=== PATIENT | female | born 1945 ===

== ENCOUNTER 2018-12-30 22:28 | Emergency (ER) | payer MEDICARE ==
[2018-12-30 22:29] VITALS: BMI 28.3
--- NOTE | 2018-12-30 23:12 | ED PDOC ---
HPI: Neurologic - General Time Seen by Provider: 12/30/18 22:36 Chief Complaint (Nursing): Dizziness/Lightheaded Chief Complaint (Provider): dizziness - History of Present Illness Timing/Duration: other (2 hours ship captain) Allergies/Adverse Reactions: Allergies FISH Allergy (Intermediate, Verified 12/30/18 22:36) RASH Penicillins Allergy (Verified 12/30/18 22:36) RASH hydromorphone Adverse Reaction (Verified 12/30/18 22:36) ITCHING SEAFOOD Allergy (Intermediate, Uncoded 12/30/18 22:36) RASH Home Medications: Ambulatory Orders Ergocalciferol [Drisdol 50,000 Intl Units Cap] 50,000 iu PO QWK 02/03/17 amLODIPine [Norvasc] 2.5 mg PO DAILY 02/03/17 Aspirin [Ecotrin] 81 mg PO DAILY 01/19/18 Meclizine [Antivert] 25 mg PO Q6 PRN #12 tab 12/31/18 Ondansetron ODT [Zofran ODT] 4 mg PO Q6 PRN #8 odt 12/31/18 Additional Complaint(s): started while watching TV, associated mild nausea, no vomit no headache no fever no focal weakness no blurry vision 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, started on meds for this but it made her "feel bad" so she no longer takes it pmd [place] Past Medical History Reviewed: Historical Data, Nursing Documentation, Vital Signs Vital Signs: Last Vital Signs Temp 98.1 F 12/30/18 22:33 Pulse 71 12/30/18 22:33 Resp 98 H 12/30/18 22:33 BP 160/76 H 12/30/18 22:54 Pulse Ox 98 12/30/18 22:33 Primary Care Provider: Gordon Vidal - Medical History PMH: Atrial Fibrillation, Cardia Arrhythmia (atrial fibrillation dx 3 yrs ago), HTN - Surgical History Surgical History: Pacemaker - Family History Family History: States: Unknown Family Hx - Social History Current smoker - smoking cessation education provided: No Alcohol: None - Immunization History Hx Tetanus Toxoid Vaccination: No - Home Medications Home Medications: Ambulatory Orders Medication Instructions Recorded Ergocalciferol [Drisdol 50,000 50,000 iu PO QWK 02/03/17 Intl Units Cap] amLODIPine [Norvasc] 2.5 mg PO DAILY 02/03/17 Aspirin [Ecotrin] 81 mg PO DAILY 01/19/18 Meclizine [Antivert] 25 mg PO Q6 PRN #12 tab 12/31/18 Ondansetron ODT [Zofran ODT] 4 mg PO Q6 PRN #8 odt 12/31/18 - Allergies Allergies/Adverse Reactions: Allergies Allergy/AdvReac Type Severity Reaction Status Date / Time FISH Allergy Intermediate RASH Verified 12/30/18 22:36 Penicillins Allergy RASH Verified 12/30/18 22:36 hydromorphone AdvReac ITCHING Verified 12/30/18 22:36 SEAFOOD Allergy Intermediate RASH Uncoded 12/30/18 22:36 Review of Systems ROS Statement: Except As Marked, All Systems Reviewed And Found Negative (and as per HPI) Gastrointestinal: Positive for: Nausea Neurological: Positive for: Dizziness. Negative for: Weakness, Numbness, Alt ered Mental Status, Headache Physical Exam - Reviewed Nursing Documentation Reviewed: Yes Vital Signs Reviewed: Yes - Physical Exam Appears: Positive for: Non-toxic, No Acute Distress Head Exam: Positive for: ATRAUMATIC, NORMOCEPHALIC Skin: Positive for: Warm, Dry Eye Exam: Positive for: EOMI, PERRL. Negative for: Nystagmus ENT: Positive for: Pharynx Is (clear with tacky mucus membranes) Neck: Positive for: Painless ROM, Supple Cardiovascular/Chest: Positive for: Regular Rate, Rhythm. Negative for: Murmur Respiratory: Positive for: Normal Breath Sounds. Negative for: Respiratory Distress Gastrointestinal/Abdominal: Positive for: Soft. Negative for: Tenderness Extremity: Positive for: Pedal Edema Lymphatic: Negative for: Adenopathy Neurological/Psych: Positive for: Awake, Alert, Symmetric/Intact Strength, Oriented. Negative for: Motor/Sensory Deficits - Laboratory Results Result Diagrams: 12/30/18 23:38 12/30/18 23:38 - ECG O2 Sat by Pulse Oximetry: 98 Medical Decision Making Medical Decision Making: Time: 14 CT Head W/O Contrast Findings: Normal size of the ventricles and extra-axial spaces for the patient's age. Normal white matter tracts of the supratentorial brain. Normal basal ganglia and thalami. Normal brainstem. Normal cerebellum. There is no demonstrated extra-axial, intraparenchymal, or intraventricular hemorrhage. There are no findings of an acute ischemic infarction. Normal calvarium. There is no demonstrated fracture. Normal soft tissue structures. Normal visualized paranasal sinuses. IMPRESSION: Normal unenhanced CT scan of the brain. 0039 Labs reviewed and unremarkable. On reevaluation, patient given medication and reports feeling the same. Patient endorsed to Dr. Shah, pending reassessment and final ER disposition. Disposition - Clinical Impression Clinical Impression: Vertigo - Patient ED Disposition Is Patient to be Admitted: Transfer of Care - Disposition Disposition: Transfer of Care Disposition Time: 00:39 Condition: STABLE Prescriptions: Meclizine [Antivert] 25 mg PO Q6 PRN #12 tab PRN Reason: Dizziness Ondansetron ODT [Zofran ODT] 4 mg PO Q6 PRN #8 odt PRN Reason: Nausea/Vomiting Instructions: Vertigo (a Type of Dizziness) Forms: [facility] (Grenadian) Print Language: TUNISIAN Patient Signed Over To: Pernell Shah
[2018-12-30 23:53] LABS: BASO # 0.1 K/uL (0.0-0.2); BASO % 0.5 % (0.0-2.0); EOS # 0.3 K/uL (0.0-0.7); EOS % 3.4 % (0.0-4.0); HEMOGLOBIN 13.5 g/dL (12.0-16.0); LYMPH # 2.4 K/uL (1.0-4.3); LYMPH % 23.6 % (20.0-40.0); MEAN CELL VOLUME 91.8 fl (81.0-99.0); MEAN CORPUSCULAR HEMOGLOBIN 30.3 pg (27.0-31.0); MEAN PLATELET VOLUME 9.5 fl (7.2-11.7); MONO # 0.7 K/uL (0.0-0.8); NEUT # 6.7 K/uL (1.8-7.0); NEUT % 65.5 % (50.0-75.0); RBC 4.46 Mil/uL (3.80-5.20); RED CELL DISTRIBUTION WIDTH 12.8 % (11.5-14.5); WHITE BLOOD COUNT 10.3 K/uL (4.8-10.8)
[2018-12-30 23:56] LABS: PROTHROMBIN TIME 11.3 Seconds (9.8-13.1)
[2018-12-30 23:59] LABS: PARTIAL THROMBOPLASTIN TIME 33.6 Seconds (25.6-37.1)
[2018-12-31] LABS: ALB/GLOB RATIO 1.4 (1.0-2.1); ALBUMIN 4.4 g/dL (3.5-5.0); ALT/SGPT 23 U/L (9-52); AST/SGOT 26 U/L (14-36); BLOOD UREA NITROGEN 26 mg/dl (7-17); CALCIUM 9.3 mg/dL (8.4-10.2); GFR NON-AFRICAN AMERICAN > 60
[2018-12-31 00:12] LABS: B-TYPE NATRIURETIC PEPTIDE 153 pg/ml (0-900)
--- NOTE | 2018-12-31 01:14 | ED PDOC ---
- Laboratory Results Result Diagrams: 12/30/18 23:38 12/30/18 23:38 Lab Results: PT 11.3 Seconds (9.8-13.1) 12/30/18 23:38 INR 1.0 12/30/18 23:38 APTT 33.6 Seconds (25.6-37.1) 12/30/18 23:38 Troponin I < 0.0120 ng/mL (0.00-0.120) 12/30/18 23: NT-Pro-B Natriuret Pep 153 pg/ml (0-900) 12/30/18 23:38 Total Bilirubin 0.7 mg/dl (0.2-1.3) 12/30/18 23:38 AST 26 U/L (14-36) 12/30/18 23:38 ALT 23 U/L (9-52) 12/30/18 23:38 Alkaline Phosphatase 117 U/L (38-126) 12/30/18 23:38 Total Protein 7.7 G/DL (6.3-8.2) 12/30/18 23:38 Albumin 4.4 g/dL (3.5-5.0) 12/30/18 23:38 Globulin 3.2 gm/dL (2.2-3.9) 12/30/18 23:38 Albumin/Globulin Ratio 1.4 (1.0-2.1) 12/30/18 23:38 - ECG O2 Sat by Pulse Oximetry: 98 (RA) Pulse Ox Interpretation: Normal Medical Decision Making Medical Decision Makin Patient endorsed by Dr. Garcia, pending reevaluation. 0357 After further hydration and IV Reglan, patient reports improvement in symptoms, stable for discharge. Diagnosis: Vertigo Scribe Attestation: Documented by Jada Giles, acting as a scribe for Penrell Shah MD. Provider Scribe Attestation: All medical record entries made by the Scribe were at my direction and p ersonally dictated by me. I have reviewed the chart and agree that the record accurately reflects my personal performance of the history, physical exam, medical decision making, and the department course for this patient. I have also personally directed, reviewed, and agree with the discharge instructions and disposition. Disposition - Clinical Impression Clinical Impression: Vertigo - POA Present On Arrival: None - Disposition Disposition: Routine/Home Disposition Time: 03:57 Condition: STABLE Prescriptions: Meclizine [Antivert] 25 mg PO Q6 PRN #12 tab PRN Reason: Dizziness Ondansetron ODT [Zofran ODT] 4 mg PO Q6 PRN #8 odt PRN Reason: Nausea/Vomiting Instructions: Vertigo (a Type of Dizziness) Forms: [facility] (Icelandic) Print Language: FRENCH
[2018-12-31] MEDS ORDERED: Sodium Chloride 0.9% 1,000 ML IV STA (02:01)
[2018-12-31 02:16] VITALS: BP 146/72; PULSE 70; RESP 15; TEMP 98.8
[2018-12-31 03:58] VITALS: O2SAT 98
--- NOTE | 2018-12-31 09:55 | CT ---
Date of service: 12/30/2018 PROCEDURE: CT HEAD WITHOUT CONTRAST. HISTORY: dizziness COMPARISON: Comparison made with prior CT scan brain 09/08/2015. TECHNIQUE: Axial computed tomography images were obtained through the head/brain without intravenous contrast. Radiation dose: Total exam DLP = 832.48 mGy-cm. This CT exam was performed using one or more of the following dose reduction techniques: Automated exposure control, adjustment of the mA and/or kV according to patient size, and/or use of iterative reconstruction technique. FINDINGS: HEMORRHAGE: No acute parenchymal, subarachnoid or extra-axial hemorrhage. BRAIN: Small chronic appearing lacunar type infarct anterior limb right internal capsule with questionable tiny chronic lacune in the region of the posterior limb left internal capsule as well. Mild generalized volume loss. Redemonstrated are at least 2 tiny nonspecific subarachnoid calcifications left cerebral hemisphere; findings are nonspecific though could represent some old postinflammatory sequela; rule out neurocysticercosis VENTRICLES: No obstructive hydrocephalus. CALVARIUM: Calvarium intact PARANASAL SINUSES: Minimal mucosal thickening seen within the ethmoid air complex. Frontal sinuses remain hypoplastic in appearance MASTOID AIR CELLS: Unremarkable as visualized. No inflammatory changes. OTHER FINDINGS: None. IMPRESSION: No acute intracranial hemorrhage. Small right and suspected tiny left basal ganglia chronic lacunar type infarcts. Redemonstrated are at least 2 tiny nonspecific subarachnoid calcifications left cerebral hemisphere; findings are nonspecific though could represent some old postinflammatory sequela; rule out neurocysticercosis Mild generalized volume loss.
--- NOTE | 2018-12-31 11:46 | CARD ---
APPROVED REPORT Date of service: 12/30/2018 EKG Measurement Heart [id number] <Conclusion> AV dual-paced rhythm Abnormal ECG
== END 2018-12-31 04:10 | disposition home or self-care (01) ==
LOC: H.ER 22:28
DX: R42 Dizziness and giddiness (principal); I10 Essential (primary) hypertension; Z88.5 Allergy status to narcotic agent; Z95.0 Presence of cardiac pacemaker; Z88.0 Allergy status to penicillin; Z79.899 Other long term (current) drug therapy; Z79.82 Long term (current) use of aspirin
CPT/HCPCS: 70450; 80053; 82948; 83735; 83880; 84100; 84443; 84484; 85025; 85610; 85730; 86850; 86900; 93005; 96374; 99285; J2405; J2765; J7030